=== PATIENT | female | born 1970 | race Caucasian/White ===

== ENCOUNTER 2022-12-10 16:18 | Emergency (ER) | payer OTHER, SELFPAY ==
[2022-12-10 16:19] VITALS: BP 136/83; PULSE 85; RESP 17; TEMP 36.4; O2SAT 98
--- NOTE | 2022-12-10 16:30 | EDS_ITS ---
HPI History of Present Illness HPI Narrative: Patient presents with left hip injury that occurred today. Patient states she fell off of her porch. Patient states it was approximately 2 to 3 feet. Patient states that landed on her left hip. Patient denies any head injury or loss of consciousness. Patient describes her pain as aching. Patient states it is localized to just the left hip. Patient states her pain is worse with weightbearing. Patient states it is better with rest. Patient states her leg w ants to give out on her from time to time due to the pain when she is walking. Patient denies any other paresthesias or weakness. Chief Complaint: Fall Informant: patient Occured/Mechanism Mechanism/Context: Yes fall Onset/Context/Timing Onset: Today Context: Sudden Onset Timing: Continuous Quality of Pain: Aching Worsened by: Weightbearing Relieved by: Rest Associated Symptoms Associated Symptoms: Negative for Parasthesia, Weakness or Loss of Funtion [facility] Medical History (Updated 12/10/22 @ 17:[address] Nikos Myers DO) Diabetes Home Medications hydrocodone-acetaminophen 5-325mg 5mg-325mg 1 tab PO Q6H PRN PRN Pain 3 days #10 TABLETS 12/10/22 [Rx Last Taken Unknown] levothyroxine 175 mcg tablet 175 mcg PO DAILY 12/10/22 [History Last Taken Unknown] melatonin 10 mg capsule 10 mg PO QHS 12/10/22 [History Last Taken Unknown] metformin 500 mg tablet,extended release 24 hr 1,000 mg PO BID 12/10/22 [History Last Taken Unknown] Allergy/AdvReac Type Severity Reaction Status Date / Time No Known Allergies Allergy Verified 12/10/22 16:19 Surgical History History of section Hx of gastric bypass Hx of partial thyroidectomy Social History Smoking Status: Never smoker ROS ROS ED Constitutional Constitutional ED: Denies chills or fever(s) Eyes Eyes: Denies blurry vision or change in vision ENT ENT ED: Denies rhinorrhea or sore throat Cardiovascular Cardiovascular: Denies chest pain or palpitations Respiratory/Chest Respiratory/Chest: Denies cough or dyspnea Gastrointestinal Gastrointestinal: Denies nausea or vomiting Genitourinary Genitourinary ED: Denies dysuria or hematuria Musculoskeletal Musculoskeletal: Denies back pain or neck pain Integumentary Reports Abrasions; Denies abscess or rash Neurologic Neurologic: Denies headache(s) or weakness Allergic/Immunologic Allergic/Immunologic ED: Denies mouth swelling or urticaria EXAM Physical Exam Const Vital Signs: 12/10/22 16:19 Temperature 97.6 F L Temperature Source Temporal Pulse Rate 85 Respiratory Rate 17 Blood Pressure 136/83 H Blood Pressure Mean 100 Pulse Ox 98 Oxygen Delivery Method Room Air Positive well nourished and well developed General Appearance ED: well developed and NAD Neck full ROM and supple Extremity Extremity Narrative: There is tenderness over the posterior and lateral aspects of the left hip. There is no obvious deformity noted. There is no shortening or external rotation. There is pain with internal rotation of the left lower extremity. There is no pain with external rotation. Range of motion was limited in all motions of the left left hip secondary to pain. Strength is 5/5 bilaterally in the lower extremities. There are no sensory deficits noted. Pedal pulses are equal bilaterally. General Extremety ED: Yes weight-bearing difficulty General Extremity: weight-bearing difficulty Neuro oriented x3, CN's II-XII intact bilaterally, moves all extremities and no sensory deficits noted Sensorium / Orientation: alert Motor Exam: strength 5/5 throughout Skin Skin Narrative: There is a superficial abrasion over the posterior aspect of the left elbow proximal forearm. There is no active bleeding noted. Trauma: abrasion MDM MDM MDM Narrative Medical decision making narrative: Differential diagnosis includes hip fracture, contusion, and sprain. X-rays of the left hip will be obtained to assess for fracture. Radiography Diagnostic Testing: Clinical Impression(s) from Imaging Studies Hip/Pelvis X-Ray 12/10/22 16:45 IMPRESSION: 1. Moderate left hip arthrosis with no evidence of acute fracture or dislocation. 2. Left atrial sclerotic region possibly representing bone island though not fully characterized. Consider baseline CT pelvic imaging for further assessment. Electronically Signed: Rikki Perdomo DO at 17:16 EDT , X-rays of the left hip were obtained. There are 3 views. On my independent interpretation, there is no acute fracture or dislocation. There are mild degenerative changes noted. Radiologist also interpreted the x-rays and agrees. Treatment and Re-Evaluation Narrative: Patient was advised of her findings. Patient was instructed to use ice to the area. Patient was instructed to follow-up with her primary care physician in 5 to 7 days. Patient was given a prescription for a short course of [place]. Patient understood and was agreeable with the plan. All questions were answered. Discharge Plan Triage Chief Complaint: Fall ED Provider: Nikos Myers Dx/Rx/DC Orders Clinical Impression: Fall, Contusion of left hip, initial encounter Instructions: ED Contusion, Lower Extremity Prescriptions: New hydrocodone-acetaminophen [hydrocodone-acetaminophen] 5-325 mg tablet 1 tab PO Q6H PRN PRN (Reason: Pain) 3 Days Qty: 10 0RF No Action levothyroxine 175 mcg tablet 175 mcg PO DAILY metformin 500 mg tablet extended release 24 hr 1,000 mg PO BID melatonin 10 mg capsule 10 mg PO QHS Primary Care Provider: Julian Blank Referrals: Julian Blank PA [Primary Care Provider] - 5-7 Days Disposition Disposition: Home, Self Care
--- NOTE | 2022-12-10 16:45 | RAD_ITS ---
STUDY: X-RAY - PELVIS AND LEFT HIP REASON FOR EXAM: Female, 52 years old. Injury/Pain TECHNIQUE: 3 views of the pelvis and hip. COMPARISON: None. FINDINGS: There is a non-specific bowel gas pattern. Normal visualized soft tissue structures. Normal bilateral iliac wings, sacroiliac joints and visualized sacrum. Normal bilateral superior and inferior pubic rami. Normal pubic symphysis. Normal bilateral ischial tuberosities. Normal visualized femoral head. Normal acetabulum. There is moderate articular joint space narrowing of the hip. There is a demonstrated sclerotic region along the left ischium above the acetabulum measuring 2.7 x 1.6 cm. RAD/HIP, UNI W/ Pelvis 2-3 Views IMPRESSION: 1. Moderate left hip arthrosis with no evidence of acute fracture or dislocation. 2. Left atrial sclerotic region possibly representing bone island though not fully characterized. Consider baseline CT pelvic imaging for further assessment. Electronically Signed: Rikki Perdomo DO at 17:16 EDT ,
[2022-12-10 17:04] VITALS: BMI 30.2
== END 2022-12-10 18:40 | disposition home or self-care (01) ==
PROVIDERS: Emergency Provider Emergency Medicine; PCP Physician Assistant; Visit Provider Emergency Medicine
DX: S70.02XA Contusion of left hip, initial encounter (principal); E11.9 Type 2 diabetes mellitus without complications; Z79.899 Other long term (current) drug therapy; Z79.84 Long term (current) use of oral hypoglycemic drugs; W19.XXXA Unspecified fall, initial encounter
CPT/HCPCS: 73502; 99282

== ENCOUNTER 2023-03-19 11:44 | Emergency (ER) | payer OTHER, SELFPAY ==
[2023-03-19 11:45] VITALS: BP 133/80; PULSE 72; RESP 16; TEMP 35.8; O2SAT 97; BMI 31.2
--- NOTE | 2023-03-19 12:15 | EX.ED.UPPERE ---
HPI <SHAYLA Marrero - Last Filed: 03/19/23 13:11> History of Present Illness Chief Complaint: Laceration Narrative Narrative: Patient presenting today due to a laceration to her left wrist that she got this morning when she was walking to congregation carrying a glass bowl of pudding and tripped in the parking lot, causing her to fall on top of the glass bowl which shattered and cut her wrist. She did not hit her head, there was no loss of consciousness, she is not on any blood thinners, she denies any other injury. Tetanus Immunization: Unknown PFS <SHAYLA Marrero - Last Filed: 03/19/23 13:11> [facility] Medical History Diabetes Home Medications hydrocodone-acetaminophen 5-325mg 5mg-325mg 1 tab PO Q6H PRN PRN Pain 3 days #10 TABLETS 12/10/22 [Rx Last Taken Unknown] levothyroxine 175 mcg tablet 175 mcg PO DAILY 12/10/22 [History Last Taken Unknown] melatonin 10 mg capsule 10 mg PO QHS 12/10/22 [History Last Taken Unknown] metformin 500 mg tablet,extended release 24 hr 1,000 mg PO BID 12/10/22 [History Last Taken Unknown] Allergy/AdvReac Type Severity Reaction Status Date / Time No Known Allergies Allergy Verified 12/10/22 16:19 Surgical History History of section Hx of gastric bypass Hx of partial thyroidectomy Social History Smoking Status: Never smoker ROS <SHAYLA Marrero - Last Filed: 03/19/23 13:11> ROS ED Constitutional Constitutional ED: Denies chills or fever(s) Cardiovascular Cardiovascular: Denies chest pain Respiratory/Chest Respiratory/Chest: Denies cough or dyspnea Gastrointestinal Gastrointestinal: Denies abdominal pain, nausea or vomiting Musculoskeletal Musculoskeletal: Denies arthralgias or myalgias Integumentary Reports laceration Neurologic Neurologic: Denies weakness EXAM <SHAYLA Marrero - Last Filed: 03/19/23 13:11> Physical Exam Const Vital Signs: 03/19/23 11:45 Temperature 96.4 F L Temperature Source Temporal Pulse Rate 72 Respiratory Rate 16 Blood Pressure 133/80 H Blood Pressure Mean 97 Pulse Ox 97 Oxygen Delivery Method Room Air Positive well nourished, well developed and no apparent distress General Appearance ED: well developed HEENT Reports normocephalic and head/scalp atraumatic Mouth ED: Yes moist mucous membranes normal Eyes PERRL and EOMs intact bilaterally Neck full ROM and supple Chest Wall inspection of chest normal Resp normal respiratory effort and clear to auscultation bilaterally Cardio regular rate and regular rhythm GI soft to palpation, non-tender, non-distended and no masses Back/Spine normal ROM and normal to inspection Extremity full ROM Extremity Narrative: Two superficial and linear 2.5 cm lacerations to the dorsal radial aspect of the left wrist. Small 0.5 cm linear laceration to the dorsal aspect of the third finger across the DIP joint. Full range of motion to the left wrist, full flexion extension to the MCPs, PIPs, DIP joints of the left hand. Radial pulse 2+, good capillary refill, sensation intact. Neuro oriented x3, CN's II-XII intact bilaterally, moves all extremities, no focal motor deficits and no sensory deficits noted Sensorium / Orientation: awake and alert Psych mental status grossly normal and thought process normal Skin no rashes or lesions noted and no wounds [facility] <SHAYLA Marrero - Last Filed: 03/19/23 13:11> [facility] Narrative Medical decision making narrative: Patient presenting due to two lacerations to her wrist, these are about 2 cm in length, 1 small 1.5 cm linear laceration to the back of the third finger. These were all superficial, no active bleeding, they were extensively cleaned with normal saline and chlorhexidine. Dermabond was used to repair the wound. Tetanus updated. She has been educated on signs of infection to look out for and reasons to return. Discharged home in stable condition. I have personally performed a face to face assessment of the patient and have reviewed the SKYLA Note. I performed a substantive portion of the visit including all aspects of the following. My damon findings include: History is a 53-year-old female was walking in the [place] when she tripped and fell breaking a glass bowl she was carrying. Causing 2 small lacerations to the lateral aspect of her left wrist. No other injuries. Tetanus is not up-to-date. Exam is [well-appearing 53-year-old female. Vital signs stable afebrile. HEENT exam unremarkable atraumatic. Nontender. C-spine nontender. Back nontender. Lungs clear. Heart regular rhythm. Chest wall and ribs nontender. Abdomen soft nontender. Pelvic girdle intact. Moving all 4 extremities. Neurovascular intact. Normal insole and outsole preparer strength. Normal range of motion. The left wrist lateral aspect proximal to the hand and thumb there are 2 parallel 1 inch lacerations. No active bleeding. They can be Dermabond repaired.] Medical Decision Making [Ramila repair. Update tetanus. Discharge.] Other additions or changes: [None] <Dr. Rahat Gusman MD - Last Filed: 03/19/23 12:21> [facility] MDM Narrative Medical decision making narrative: I have personally performed a face to face assessment of the patient and have reviewed the SKYLA Note. I performed a substantive portion of the visit including all aspects of the following. My damon findings include: History is a 53-year-old female was [place] the [place] when she tripped and fell breaking a glass bowl she was carrying. Causing 2 small lacerations to the lateral aspect of her left wrist. No other injuries. Tetanus is not up-to-date. Exam is [well-appearing 53-year-old female. Vital signs stable afebrile. HEENT exam unremarkable atraumatic. Nontender. C-spine nontender. Back nontender. Lungs clear. Heart regular rhythm. Chest wall and ribs nontender. Abdomen soft nontender. Pelvic girdle intact. Moving all 4 extremities. Neurovascular intact. Normal insole and outsole preparer strength. Normal range of motion. The left wrist lateral aspect proximal to the hand and thumb there are 2 parallel 1 inch lacerations. No active bleeding. They can be Dermabond repaired.] Medical Decision Making [Ramila repair. Update tetanus. Discharge.] Other additions or changes: [None] Procedures <SHAYLA Marrero - Last Filed: 03/19/23 13:11> Lacerations laceration: Length: 4 cm Depth: Skin Shape: Linear Prep: Chlorhexadine Laceration repair: Dermabond and Irrigated Discharge Plan Triage Chief Complaint: Laceration ED Midlevel Provider: Agnes Arriaga ED Provider: Rahat Gusman Dx/Rx/DC Orders Clinical Impression: Laceration of hand Instructions: ED Laceration, Extremity: Skin Glue Prescriptions: No Action levothyroxine 175 mcg tablet 175 mcg PO DAILY metformin 500 mg tablet extended release 24 hr 1,000 mg PO BID melatonin 10 mg capsule 10 mg PO QHS hydrocodone-acetaminophen [hydrocodone-acetaminophen] 5-325 mg tablet 1 tab PO Q6H PRN PRN (Reason: Pain) 3 Days Qty: 10 0RF Primary Care Provider: Julian Blank Referrals: Julian Blank, PA [Primary Care Provider] - Activity Restrictions/Additional Instructions: Return or follow-up with your PCP for any signs of infection. Disposition Disposition: Home, Self Care Discharge Date/Time: 03/19/23 13:05
[2023-03-19] MEDS: Diphth,Pertuss(Acell),Tet Vac 0.5 ML Vial IM (12:20)
[2023-03-19 13:04] VITALS: RESP 16
== END 2023-03-19 13:05 | disposition home or self-care (01) ==
PROVIDERS: Emergency Provider Emergency Medicine; PCP Physician Assistant; Visit Provider Emergency Medicine
DX: S61.512A Laceration without foreign body of left wrist, initial encounter (principal); E11.9 Type 2 diabetes mellitus without complications; X58.XXXA Exposure to other specified factors, initial encounter
CPT/HCPCS: 12002; 90715; 99282